=== PATIENT | male | born 1965 | race Caucasian/White ===

== ENCOUNTER 2018-06-24 11:49 | Emergency (ER) | payer SELFPAY ==
--- NOTE | 2018-06-24 14:11 | ER Document Report ---
ED Medical Screen (RME) - General Chief Complaint: Leg Pain Stated Complaint: LEG PAIN Time Seen by Provider: 06/24/18 14:01 Notes: Patient is a 53-year-old male presents to the emergency department for left hip and left knee pain. Patient states left hip and left knee pain have started recently. States he denies any injury to his left side. Patient states he also noted a generalized rash on his left lower extremity. Patient states ever since he had his hernia repair in 2009 he feels as though intermittently he has bilateral leg fatigue. States he has not seen a primary care provider for this. Patient is also concerned that he is diabetic because it runs in his family. Patient is requesting testing for diabetes. GENERAL: Alert, interacts well. No acute distress. EXTREMITIES: Moves all 4 extremities spontaneously. No edema, normal radial and dorsalis pedis pulses bilaterally. No cyanosis. NEUROLOGICAL: Alert and oriented x3. Normal speech. PSYCH: Normal affect, normal mood. Exam is somewhat limited due to patient being in triage, fully dressed and unable to pull up his pants to examine left lower extremity. I have greeted and performed a rapid initial assessment of this patient. A comprehensive ED assessment and evaluation of the patient, analysis of test results and completion of the medical decision making process will be conducted by additional ED providers. TRAVEL OUTSIDE OF THE [place] IN LAST 30 DAYS: No - Related Data Allergies/Adverse Reactions: No Known Allergies Allergy (Unverified 06/24/18 11:53) Physical Exam - Vital signs Vitals: Temp Pulse Resp BP Pulse Ox 98.0 F 87 14 192/107 H 97 06/24/18 12:06/24/18 12:01 06/24/18 12:01 06/24/18 12:01 06/24/18 12:01 Course - Vital Signs Vital signs: Temp Pulse Resp BP Pulse Ox 98.0 F 87 14 192/107 H 97 06/24/18 12:01 06/24/18 12:01 06/24/18 12:01 06/24/18 12:01 06/24/18 12:01
--- NOTE | 2018-06-24 15:00 | RADIOLOGY REPORT (SQ) ---
EXAM DESCRIPTION: HIP LEFT AP/LATERAL COMPLETED DATE/TIME: 06/24/2018 2:32 pm REASON FOR STUDY: pain COMPARISON: None. NUMBER OF VIEWS: Two views. TECHNIQUE: AP pelvis and additional frog-leg view of the left hip. LIMITATIONS: None. FINDINGS: MINERALIZATION: Normal. LEFT HIP: No fracture or dislocation. No worrisome bone lesions. RIGHT HIP: No fracture or dislocation. No worrisome bone lesions. PUBIS AND ISCHIUM: No fracture. PELVIS: No fracture. SACRUM: No fracture or dislocation. No worrisome bone lesions. LOWER LUMBAR SPINE: No fracture or dislocation. No worrisome bone lesions. No significant disc disea se. SOFT TISSUES: No findings. OTHER: No other significant finding. IMPRESSION: NEGATIVE STUDY OF THE LEFT HIP AND PELVIS. NO RADIOGRAPHIC EVIDENCE OF ACUTE INJURY. TECHNICAL DOCUMENTATION: JOB ID: [id number] [employer]- All Rights Reserved Reading location - IP/workstation name: [email or web address]
--- NOTE | 2018-06-24 15:00 | RADIOLOGY REPORT (SQ) ---
EXAM DESCRIPTION: KNEE LEFT 4 VIEW COMPLETED DATE/TIME: 06/24/2018 2:32 pm REASON FOR STUDY: pain COMPARISON: None. NUMBER OF VIEWS: Four views. TECHNIQUE: AP, lateral, and both oblique radiographic images acquired of the left knee. LIMITATIONS: None. FINDINGS: MINERALIZATION: Normal. BONES: No acute fracture or dislocation. No worrisome bone lesions. JOINT: No effusion. SOFT TISSUES: No soft tissue swelling. No radio-opaque foreign body. OTHER: No other significant finding. IMPRESSION: NEGATIVE STUDY OF THE LEFT KNEE. NO RADIOGRAPHIC EVIDENCE OF ACUTE INJURY. TECHNICAL DOCUMENTATION: JOB ID: [id number] [employer]- All Rights Reserved Reading location - IP/workstation name: [email or web address]
[2018-06-24 16:16] LABS: APPEARANCE,URINE CLEAR; BILIRUBIN,URINE NEGATIVE (NEGATIVE); COLOR,URINE STRAW; GLUCOSE, URINE NEGATIVE (NEGATIVE); KETONES,URINE NEGATIVE (NEGATIVE); LEUKOCYTE ESTERASE,URINE NEGATIVE (NEGATIVE); NITRITE,URINE NEGATIVE (NEGATIVE); PROTEIN,URINE NEGATIVE (NEGATIVE); URINE SPECIFIC GRAVITY 1.006; UROBILINOGEN,URINE NEGATIVE mg/dL (<2.0)
[2018-06-24] MEDS ORDERED: LIDOCAINE 5% (700 MG) TRANSDERMAL ADH..PATCH TP ONE (18:06)
--- NOTE | 2018-06-24 18:06 | ER Document Report ---
ED General - General Chief Complaint: Leg Pain Stated Complaint: LEG PAIN Time Seen by Provider: 06/24/18 14:01 Notes: Patient is a 53-year-old male presents to the emergency department for left hip and left knee pain that started a couple of weeks ago. He states he has fatigue with walking and when he walks in the [employer] he can get past the [employer] registers without getting tired and having to stop. Patient states he also noted a generalized rash on his left lower extremity. Patient is also concerned that he is diabetic because it runs in his family. Patient is requesting testing for diabetes. Denies fever, chills, nausea, vomiting, diarrhea, headache, sore throat, ear pain, lightheadedness, dizziness. Denies urinary symptoms. TRAVEL OUTSIDE OF THE [place] IN LAST 30 DAYS: No - Related Data Allergies/Adverse Reactions: No Known Allergies Allergy (Verified 06/24/18 14:11) Past Medical History - Social History Smoking Status: Current Every Day Smoker Family History: DM, Hypertension Patient has suicidal ideation: No Patient has homicidal ideation: No - Past Medical History Cardiac Medical History: Reports: Hx Hypertension - untreated Renal/ Medical History: Denies: Hx Peritoneal Dialysis Past Surgical History: Reports: Hx Orthopedic Surgery - right arm Review of Systems - Review of Systems Constitutional: See HPI EENT: See HPI Cardiovascular: See HPI Respiratory: See HPI Gastrointestinal: See HPI Genitourinary: See HPI Male Genitourinary: No symptoms reported Musculoskeletal: No symptoms reported Skin: No symptoms reported Hematologic/Lymphatic: No symptoms reported Neurological/Psychological: No symptoms reported Physical Exam - Vital signs Vitals: Temp Pulse Resp BP Pulse Ox 98.0 F 87 14 192/107 H 97 06/24/18 12:01 06/24/18 12:01 06/24/18 12:01 06/24/18 12:01 06/24/18 12:01 - Notes Notes: PHYSICAL EXAMINATION: Reviewed vital signs and charting by RN GENERAL: Alert, interacts well. No acute distress. HEAD: Normocephalic, atraumatic. EYES: Pupils equal, round. Extraocular movements intact. ENT: Oral mucosa moist, tongue midline. NECK: Full range of motion. Trachea midline. LUNGS: Clear to auscultation bilaterally, no wheezes, rales, or rhonchi. No respiratory distress. HEART: Regular rate and rhythm. No murmur ABDOMEN: soft, non-tender. Non-distended. Bowel sounds present in all 4 quadrants. no McBurney's point tenderness, no Lim sign. EXTREMITIES: Moves all 4 extremities spontaneously. No edema, No cyanosis. NEUROLOGICAL: Alert. Normal speech. PSYCH: Normal affect, normal mood. SKIN: Warm, dry, normal turgor. Rash on left distal lower extremity, does not appear vesicular but has erythematous base and is slightly raised. Course - Re-evaluation Re-evalutation: 06/24/18 18:03 Overall well-appearing 53-year-old male with many risk factors. Blood pressure was 192/107 in triage, blood glucose 234, patient is a smoker. Patient did not have primary care doctor. Plan is to give him information for the free clinic. We will give him a lidocaine patch to place over the spots where he is having acute pain in his left gluteal region and his left knee. Patient is stable for discharge. - Vital Signs Vital signs: Temp Pulse Resp BP Pulse Ox 98.0 F 87 14 192/107 H 97 06/24/18 12:01 06/24/18 12:01 06/24/18 12:01 06/24/18 12:01 06/24/18 12:01 - Laboratory Laboratory results interpreted by me: 06/24/18 15:22 POC Glucose 231 H Discharge - Discharge Clinical Impression: Left hip pain Left knee pain Qualifiers: Chronicity: unspecified Qualified Code(s): M25.562 - Pain in left knee Condition: Good Disposition: HOME, SELF-CARE Additional Instructions: You were seen in the emergency department this afternoon for left-sided pain high blood sugar. It is very important that you connect with the [facility] or the [facility] to establish primary care. You have multiple risk factors that puts you in grave danger for a heart attack or a dangerous disease. Your blood sugar was greatly elevated and your blood pressure was greatly elevated while here today. You need to quit smoking. It is unclear what the rashes on your leg but it could be related to some of the supplements you are taking. If it gets worse or causes any more pain or discomfort please return to the emergency department. If you pass out, develop severe unremitting chest pain with shortness of breath or sweats, you have intense chest pain that feels ripping and goes to your back please immediately return to the emergency department as these are dangerous conditions. Please only take Motrin 600 mg every 6 hours and Tylenol 1000 mg every 6 hours for pain.
[2018-06-24 18:19] VITALS: BP 205/111
== END 2018-06-24 18:25 | disposition home or self-care (01) ==
LOC: ER 11:49
DX: M25.562 Pain in left knee (principal); M25.552 Pain in left hip; F17.200 Nicotine dependence, unspecified, uncomplicated; I10 Essential (primary) hypertension
CPT/HCPCS: 81001; 82962; 99283

== ENCOUNTER 2018-12-17 01:18 | Emergency (ER) | payer MEDICAID ==
[2018-12-17] MEDS ORDERED: OXYCODONE-ACETAMINOPHEN 5-325 MG TABLET PO ONE (03:07)
--- NOTE | 2018-12-17 03:09 | ER Document Report ---
ED Medical Screen (RME) - General Chief Complaint: Leg Pain Stated Complaint: LEG PAIN Time Seen by Provider: 12/17/18 03:06 Notes: 53-year-old male with chief complaint of worsening pain in both of his legs. States he was diagnosed with neuropathy, started on gabapentin 300 mg daily, has been increased to 600 mg daily, states that he cannot sleep tonight because it is so bad. He states now he is getting cramps in his back and legs as well. Denies fever, injury. He is on metformin for blood sugar, states he has been trying to improve his diet. TRAVEL OUTSIDE OF THE [place] IN LAST 30 DAYS: No - Related Data Allergies/Adverse Reactions: No Known Allergies Allergy (Verified 06/24/18 14:11) Past Medical History - Past Medical History Cardiac Medical History: Reports: Hx Hypertension - untreated Renal/ Medical History: Denies: Hx Peritoneal Dialysis Past Surgical History: Reports: Hx Orthopedic Surgery - right arm Physical Exam - Vital signs Vitals: Temp Pulse Resp BP Pulse Ox 98.0 F 94 20 150/92 H 98 12/17/18 02:19 12/17/18 02:19 12/17/18 02:19 12/17/18 02:19 12/17/18 02:19 - General General appearance: Appears well, Other - Patient walks with a slow stiff gait Course - Re-evaluation Re-evalutation: I have greeted and performed a rapid initial assessment of this patient. A comprehensive ED assessment and evaluation of the patient, analysis of test results and completion of the medical decision making process will be conducted by additional ED providers. - Vital Signs Vital signs: Temp Pulse Resp BP Pulse Ox 98.0 F 94 20 150/92 H 98 12/17/18 02:19 12/17/18 02:19 12/17/18 02:19 12/17/18 02:12/17/18 02:19
[2018-12-17 04:04] LABS: ABSOLUTE BASOPHILS # (AUTO) 0.1 10^3/uL (0.0-0.2); ABSOLUTE EOSINOPHILS # (AUTO) 0.4 10^3/uL (0.0-0.6); ABSOLUTE LYMPHOCYTES (AUTO) 3.7 10^3/uL (0.5-4.7); ABSOLUTE MONOCYTES (AUTO) 0.8 10^3/uL (0.1-1.4); ABSOLUTE NEUT (AUTO) 8.3 10^3/uL (1.7-8.2); BASOPHILS % (AUTO) 0.7 % (0-2); EOSINOPHILS % (AUTO) 3.3 % (0-6); HEMATOCRIT 42.8 % (37.9-51.0); HEMOGLOBIN 14.6 g/dL (13.5-17.0); LYMPHOCYTES % (AUTO) 27.7 % (13-45); MEAN CORPUSCULAR VOLUME 91 fl (80-97); MONOCYTES % (AUTO) 5.8 % (3-13); PLATELET COUNT 193 10^3/uL (150-450); RED BLOOD COUNT 4.69 10^6/uL (4.35-5.55); RED CELL DISTRIBUTION WIDTH 13.7 % (11.5-14.0); SEGMENTED NEUTROPHILS % (AUTO) 62.5 % (42-78); TOTAL CELLS COUNTED % (AUTO) 100 %; WHITE BLOOD COUNT 13.3 10^3/uL (4.0-10.5)
[2018-12-17 04:25] LABS: ANION GAP 10 (5-19); BLOOD UREA NITROGEN 15 mg/dL (7-20); CALCIUM 10.4 mg/dL (8.4-10.2); CARBON DIOXIDE 25 mmol/L (22-30); CHLORIDE 106 mmol/L (98-107); GLUCOSE 103 mg/dL (75-110); POTASSIUM 4.2 mmol/L (3.6-5.0)
[2018-12-17] MEDS ORDERED: CYCLOBENZAPRINE HCL 10 MG TABLET PO ONE (05:32)
--- NOTE | 2018-12-17 05:32 | ER Document Report ---
ED General - General Chief Complaint: Leg Pain Stated Complaint: LEG PAIN Time Seen by Provider: 12/17/18 03:06 Notes: Patient is a 53-year-old male that comes to the Emergency Department with chief complaint of worsening pain in both of his legs. He states he was diagnosed with neuropathy, started on gabapentin 300 mg daily, has been increased to 600 mg daily, states that he cannot sleep tonight because it is so bad. He states now he is getting cramps in his back and legs as well. Denies fever, injury. He is on metformin for blood sugar, states he has been trying to improve his diet. He states that in May he changed his diet, stopped drinking daily alcohol, and he has lost a lot of weight intentionally. He also states that he is struggling with no income, is trying to get on disability, is living in a camper in the back of his friend's yard. TRAVEL OUTSIDE OF THE [place] IN LAST 30 DAYS: No - Related Data Allergies/Adverse Reactions: No Known Allergies Allergy (Verified 06/24/18 14:11) Past Medical History - General Information source: Patient - Social History Smoking Status: Never Smoker Drug Abuse: None Lives with: Alone Family History: DM, Hypertension Patient has suicidal ideation: No Patient has homicidal ideation: No - Past Medical History Cardiac Medical History: Reports: Hx Hypertension - untreated Renal/ Medical History: Denies: Hx Peritoneal Dialysis Past Surgical History: Reports: Hx Orthopedic Surgery - right arm - Immunizations Immunizations up to date: Yes Hx Diphtheria, Pertussis, Tetanus Vaccination: Yes Review of Systems - Review of Systems Constitutional: No symptoms reported EENT: No symptoms reported Cardiovascular: No symptoms reported Respiratory: No symptoms reported Gastrointestinal: No symptoms reported Genitourinary: No symptoms reported Male Genitourinary: No symptoms reported Musculoskeletal: See HPI Skin: No symptoms reported Hematologic/Lymphatic: No symptoms reported Neurological/Psychological: See HPI Physical Exam - Vital signs Vitals: Temp Pulse Resp BP Pulse Ox 98.0 F 94 20 150/92 H 98 12/17/18 02:19 12/17/18 02:19 12/17/18 02:19 12/17/18 02:19 12/17/18 02:19 - Notes Notes: GENERAL: Alert, interacts well. Walks somewhat gingerly and with some pain but is otherwise well-appearing. HEAD: Normocephalic, atraumatic. EYES: Pupils equal, round, and reactive to light. Extraocular movements intact. ENT: Oral mucosa moist, tongue midline. Oropharynx unremarkable. Airway patent. LUNGS: Clear to auscultation bilaterally, no wheezes, rales, or rhonchi. No resp iratory distress. HEART: Regular rate and rhythm. No murmur ABDOMEN: Soft, non-tender. Non-distended. EXTREMITIES: Moves all 4 extremities spontaneously. No edema, normal radial and dorsalis pedis pulses bilaterally. No cyanosis. BACK: no cervical, thoracic, lumbar midline tenderness. No saddle anesthesia, normal distal neurovascular exam. Moves all extremities in full range of motion. NEUROLOGICAL: Alert and oriented x3. Normal speech. Cranial nerves II through XII grossly intact. PSYCH: Normal affect, normal mood. SKIN: Warm, dry, normal turgor. No rashes or lesions noted. Course - Re-evaluation Re-evalutation: There is mild leukocytosis but this is nonspecific his patient's examination. No signs of cellulitis, no fever, no concerns of infection reported or noted. Patient has no lower extremity swelling or edema. He has normal distal neurovascular examination, he does ambulate with a little bit of discomfort but is able to do so. His examination is actually otherwise unremarkable. He is reporting difficulty sleeping with his chronic neuropathy. CBC otherwise unremarkable, chemistry unremarkable, magnesium unremarkable. Discussed different options. Providing with Flexeril to help with sleep/muscle pain. He does have primary care follow-up and they are adjusting his medications. I did discuss with patient, he does have a poor situation at this time, he is very interested in case management assistance, this was placed after discussion. Discussed return precautions. Patient states understanding and agreement. Stable at time of discharge. - Vital Signs Vital signs: Temp Pulse Resp BP Pulse Ox 97.7 F 74 16 124/77 95 12/17/18 05:37 12/17/18 05:37 12/17/18 05:37 12/17/18 05:37 12/17/18 05:37 - Laboratory Result Diagrams: 12/17/18 03:40 12/17/18 03:40 Laboratory results interpreted by me: 12/17/18 12/17/18 03:40 03:40 WBC 13.3 H Absolute Neutrophils 8.3 H Calcium 10.4 H Discharge - Discharge Clinical Impression: Bilateral leg pain Condition: Stable Disposition: HOME, SELF-CARE Additional Instructions: Your evaluation is most consistent with pain secondary to neuropathy. Continue gabapentin, continue follow-up with primary care provider for adjustments and treatment of this. Take the provided Flexeril especially at night to help with your symptoms. Because of your current situation we do have a pillowcase maker consult placed, they will be following up with you. Return if you worsen including swelling of the legs, fevers, pain in your back, or any other concerning or worsening symptoms. Prescriptions: Cyclobenzaprine HCl [Flexeril 5 mg Tablet] 1 - 2 tab PO TID PRN #30 tablet PRN Reason: Forms: Elevated Blood Pressure
[2018-12-17 05:39] VITALS: BP 124/77
== END 2018-12-17 05:42 | disposition home or self-care (01) ==
LOC: ER 01:18
DX: G62.9 Polyneuropathy, unspecified (principal); Z79.899 Other long term (current) drug therapy; R25.2 Cramp and spasm; I10 Essential (primary) hypertension; Z79.84 Long term (current) use of oral hypoglycemic drugs; Z59.8 Other problems related to housing and economic circumstances
CPT/HCPCS: 36415; 83735; 85025; 80048; J3490; 99283

== ENCOUNTER 2018-12-17 15:36 | Emergency (ER) | payer MEDICAID ==
[2018-12-17] MEDS ORDERED: ASPIRIN 81 MG TABLET, CHEWABLE PO ONE (15:58)
[2018-12-17] MEDS ORDERED: ONDANSETRON HCL INJ/PF 4 MG/2 ML SDV IV ONE (16:06)
[2018-12-17] MEDS ORDERED: MORPHINE SULFATE 10 MG/ML INJ IV ONE (16:06)
[2018-12-17 16:44] LABS: ABSOLUTE BASOPHILS # (AUTO) 0.1 10^3/uL (0.0-0.2); ABSOLUTE EOSINOPHILS # (AUTO) 0.3 10^3/uL (0.0-0.6); ABSOLUTE LYMPHOCYTES (AUTO) 2.3 10^3/uL (0.5-4.7); ABSOLUTE MONOCYTES (AUTO) 0.6 10^3/uL (0.1-1.4); ABSOLUTE NEUT (AUTO) 5.8 10^3/uL (1.7-8.2); BASOPHILS % (AUTO) 1.2 % (0-2); HEMATOCRIT 41.4 % (37.9-51.0); HEMOGLOBIN 14.4 g/dL (13.5-17.0); LYMPHOCYTES % (AUTO) 25.7 % (13-45); MEAN CORPUSCULAR HEMOGLOBIN 31.4 pg (27.0-33.4); MEAN CORPUSCULAR HGB CONC 34.7 g/dL (32.0-36.0); MEAN CORPUSCULAR VOLUME 91 fl (80-97); MONOCYTES % (AUTO) 6.8 % (3-13); PLATELET COUNT 179 10^3/uL (150-450); RED BLOOD COUNT 4.58 10^6/uL (4.35-5.55); RED CELL DISTRIBUTION WIDTH 13.4 % (11.5-14.0); SEGMENTED NEUTROPHILS % (AUTO) 63.3 % (42-78); TOTAL CELLS COUNTED % (AUTO) 100 %; WHITE BLOOD COUNT 9.1 10^3/uL (4.0-10.5)
--- NOTE | 2018-12-17 16:47 | ER Document Report ---
ED Extremity Problem, Lower - General Chief Complaint: Leg Pain Stated Complaint: NUMBNESS IN LEGS Time Seen by Provider: 12/17/18 15:46 Information source: Patient TRAVEL OUTSIDE OF THE [place] IN LAST 30 DAYS: No - HPI Notes: Patient complains of bilateral lower extremity pain. He states it is worse in the left lower externally than the right. It is worse with movement better with rest. However he still does get the pain at rest. He states he is a smoker. He states he has never been told that he has problems with circulation before. He states he has been told he has neuropathy and he takes gabapentin. He states he is currently out of his gabapentin. He states he was seen here yesterday and received Flexeril but this is not helping with the pain. No recent falls or trauma. He also states that he has some abnormal sensations such as a "numbness" in the left lower extremity. The pain does radiate up both legs. It is intermittent. It is sharp. It is moderate to severe. He states he also has noticed that his feet have been paler than usual. - Related Data Allergies/Adverse Reactions: No Known Allergies Allergy (Verified 06/24/18 14:11) Past Medical History - General Information source: Patient - Social History Smoking Status: Current Every Day Smoker Chew tobacco use (# tins/day): No Frequency of alcohol use: None Drug Abuse: None Family History: DM, Hypertension Patient has suicidal ideation: No Patient has homicidal ideation: No - Past Medical History Cardiac Medical History: Reports: Hx Hypertension - untreated Endocrine Medical History: Reports: Hx Diabetes Mellitus Type 2 Renal/ Medical History: Denies: Hx Peritoneal Dialysis Past Surgical History: Reports: Hx Orthopedic Surgery - right arm - Immunizations Immunizations up to date: Yes Hx Diphtheria, Pertussis, Tetanus Vaccination: Yes Review of Systems - Review of Systems Constitutional: denies: Chills, Fever Cardiovascular: denies: Chest pain, Dyspnea Respiratory: denies: Cough, Short of breath -: Yes All other systems reviewed and negative Physical Exam - Vital signs Vitals: Temp Pulse Resp BP Pulse Ox 97.7 F 111 H 16 115/75 97 12/17/18 15:39 12/17/18 15:39 12/17/18 15:39 12/17/18 15:39 12/17/18 15:39 Interpretation: Tachycardic - General General appearance: Appears well, Alert - HEENT Head: Normocephalic, Atraumatic Eyes: Normal Pupils: PERRL - Respiratory Respiratory status: No respiratory distress Chest status: Nontender Breath sounds: Normal Chest palpation: Normal - Cardiovascular Rhythm: Regular, Tachycardia Heart sounds: Normal auscultation Murmur: No - Abdominal Inspection: Normal Distension: No distension Bowel sounds: Normal Tenderness: Nontender Organomegaly: No organomegaly - Back Back: Normal, Nontender - Extremities General upper extremity: Normal inspection, Nontender, Normal color, Normal ROM, Normal temperature General lower extremity: Tender - Feet are tender mildly bilaterally to palpation, Normal ROM, Normal weight bearing, Other - Both feet are slightly cool and pale. Capillary refill does appear normal in all toes. Patient's dorsalis pedis pulse is not palpable on either foot. I tried to use a Doppler and was unable to obtain a pulse on either foot.. No: Sosa's sign - Neurological Neuro grossly intact: Yes Cognition: Normal Orientation: AAOx4 [place] Coma Scale Eye Opening: Spontaneous [place] Coma Scale Verbal: Oriented [place] Coma Scale Motor: Obeys Commands [place] Coma Scale Total: 15 Speech: Normal Motor strength normal: LUE, RUE, LLE, RLE Sensory: Normal - Psychological Associated symptoms: Normal affect, Normal mood - Skin Skin Temperature: Warm Skin Moisture: Dry Skin Color: Normal Course - Re-evaluation Re-evalutation: 12/17/18 19:29 Patient reassessed at this time. He is resting comfortably in the bed. He still does have some lower extremity pain. It is not significantly different than previously. His lower joint still have good color and temperature. I have discussed the case with Dr. Benjamin at the tertiary center. He has accepted the patient in transfer. - Vital Signs Vital signs: Temp Pulse Resp BP Pulse Ox 97.7 F 111 H 30 H 100/74 96 12/17/18 15:39 12/17/18 15:39 12/17/18 19:04 12/17/18 17:01 12/17/18 19:04 - Laboratory Result Diagrams: 12/17/18 16:18 12/17/18 17:16 - Diagnostic Test Radiology reviewed: Image reviewed, Reports reviewed Discharge - Discharge Clinical Impression: Claudication in peripheral vascular disease Condition: Stable Disposition: [facility]
[2018-12-17 17:34] VITALS: BP 100/74
[2018-12-17 17:44] LABS: ANION GAP 9 (5-19); BLOOD UREA NITROGEN 14 mg/dL (7-20); CALCIUM 9.9 mg/dL (8.4-10.2); CARBON DIOXIDE 24 mmol/L (22-30); CHLORIDE 107 mmol/L (98-107); GLUCOSE 91 mg/dL (75-110); POTASSIUM 4.3 mmol/L (3.6-5.0)
--- NOTE | 2018-12-18 00:07 | RADIOLOGY REPORT (SQ) ---
EXAM DESCRIPTION: US LOWER EXTREMITY ARTERIES BILATERAL COMPLETED DATE/TME: 12/17/2018 00:00 CLINICAL HISTORY: 53 years Male, BILATERAL LOWER EXTREMITY PAIN / NO PULSES COMPARISON: None. TECHNIQUE: Grayscale, color Doppler, and spectral Doppler imaging of the bilateral lower extremities. FINDINGS: Velocities: (All velocities in centimeters per second) Right lower extremity- STAGECRAFT PROFESSOR: 92.1 PFA: 60.7 Proximal SFA: 43.2 Mid SFA: 43.5 Distal SFA: 37.3 Popliteal: 20 WHOLESALE PARTS SALESPERSON: 21.3 SOCO: 15.5 DPA: 13.0 Left lower extremity- STAGECRAFT PROFESSOR: 35.9 PFA: Not visualized. Proximal SFA: 20.7 Mid SFA: 14.7 Distal SFA: 22.2 Popliteal: 22.2 WHOLESALE PARTS SALESPERSON: 15.1 SOCO: 9.2 DPA: Not visualized. Doppler imaging: Right leg: Large amount of atherosclerotic plaque. Monophasic waveforms in the right common femoral artery. Measured velocities above may be in a collateral vessel adjacent to the femoral artery and minimal if any significant flow is seen in right superficial femoral artery. Reconstitution of monophasic flow in the right popliteal artery and visualized trifurcated vessels. Left leg: Large amount of atherosclerotic plaque. Monophasic waveforms diminished velocity in the left common femoral artery. Parvus tardus waveforms throughout the left superficial femoral artery with low velocities throughout. Monophasic waveforms at the left popliteal arteries as well as the visualized trifurcated vessels. The dorsalis pedis artery is not visualized. IMPRESSION: 1. Monophasic waveforms in the bilateral common femoral artery suggests inflow stenosis of the iliac arteries or aorta. CTA of the abdomen, pelvis, bilateral lower extremities would provide additional characterization. 2. Occlusion versus high-grade stenosis of the right superficial femoral artery. Recorded velocities above may be within a collateral vessel. There is reconstitution of flow in the right popliteal artery. 3. High-grade narrowing with parvus tardus waveforms throughout the left superficial femoral artery. Monophasic waveforms of the left popliteal and trifurcated arteries.
== END 2018-12-17 19:54 | disposition short-term general hospital (02) ==
LOC: ER 15:36
DX: E11.51 Type 2 diabetes mellitus with diabetic peripheral angiopathy without gangrene (principal); E11.40 Type 2 diabetes mellitus with diabetic neuropathy, unspecified; Z79.899 Other long term (current) drug therapy; M79.604 Pain in right leg; M79.605 Pain in left leg; R20.0 Anesthesia of skin; R23.1 Pallor; I10 Essential (primary) hypertension; R00.0 Tachycardia, unspecified; F17.200 Nicotine dependence, unspecified, uncomplicated
CPT/HCPCS: 36415; 93925; J2270; J2405; 96374; 96375; 99285

== ENCOUNTER 2019-01-13 23:45 | Emergency (ER) | payer MEDICAID ==
--- NOTE | 2019-01-14 03:34 | ER Document Report ---
ED General Pain - General Chief Complaint: Pain All Over Stated Complaint: PAIN ALL OVER Time Seen by Provider: 01/14/19 03:34 Mode of Arrival: Ambulatory Information source: Patient Notes: HISTORY OF PRESENT ILLNESS: Patient is a 53-year-old male with a past medical history of peripheral vascular disease status post aortofemoral bypass who presents with persistent abdominal pain for the past several days following vascular surgery at outside facility approximately 2-1/2 weeks ago. Patient reports his pain has been moderately controlled with oxycodone, however he ran out of this and was unable to follow- up with a surgeon today for his postoperative appointment. Patient denies nausea, vomiting, hematemesis, hematochezia, or melena. Patient initially said "my whole body hurts, "but after prompted to be more specific he responded "my stomach's been hurting ever since the surgery." Location: Abdomen Onset: "It has been hurting ever since the surgery" Alleviation: Oxycodone Provocation: Movement Quality: Aching Radiation: None Severity: Moderate at worst, currently mild Timing: Persistent History of abdominal surgery: Yes, recent aortofemoral bypass Associated symptoms: Denies nausea vomiting, no chest pain or shortness of breath, no hematochezia or melena, no hematemesis Last bowel movement: Today and "harder than normal" REVIEW OF SYSTEMS: CONSTITUTIONAL : Denies fever or chills, no sweats. Denies recent illness. EENT: Denies eye, ear, throat, or mouth pain or symptoms. Denies nasal or sinus congestion. CARDIOVASCULAR: Denies chest pain. Denies swelling of the legs. RESPIRATORY: Denies cough, cold, or chest congestion. Denies shortness of breath or difficulty breathing. Denies wheezing. GASTROINTESTINAL: Positive for abdominal pain. Denies nausea, vomiting, or diarrhea. Denies constipation. GENITOURINARY: Denies difficulty urinating, painful urination, burning, frequency, or blood in urine. FEMALE GENITOURINARY: Denies vaginal bleeding, abnormal or irregular periods. MUSCULOSKELETAL: Denies neck or back pain or joint pain or swelling. SKIN: Denies rash or skin lesions. HEMATOLOGIC : Denies easy bruising or bleeding. LYMPHATIC: Denies swollen, enlarged glands. NEUROLOGICAL: Denies altered mental status or loss of consciousness. Denies headache. Denies weakness or paralysis or loss of use of either side. Denies problems with gait or speech. Denies sensory or motor loss. PSYCHIATRIC: Denies anxiety or stress or depression. All other systems reviewed and negative. PHYSICAL EXAMINATION: GENERAL: Well-appearing, well-nourished and in no acute distress. HEAD: Atraumatic, normocephalic. No scalp deformity, depression, or crepitance. EYES: Pupils are 3 mm and equal/round/reactive to light, extraocular movements intact, sclera anicteric, conjunctiva are normal. ENT: Nares patent bilaterally, oropharynx. Moist mucous membranes. No tonsil hypertrophy. NECK: Normal range of motion, supple without lymphadenopathy. LUNGS: Breath sounds present, equal, and clear to auscultation bilaterally. No wheezes, rales, or rhonchi. HEART: Regular rate and rhythm without murmurs, rubs, or gallops. 2+ peripheral pulses. Normal capillary refill. ABDOMEN: Large vertical laparotomy incision with malgorzata. Soft, nontender, nondistended. Normoactive bowel sounds. No guarding, no rebound. No masses appreciated. BACK: Normal contour, no midline tenderness. Rectal exam deferred. GENITAL/PELVIC: Deferred. EXTREMITIES: Normal range of motion, no pitting or edema. No cyanosis. NEUROLOGICAL: No focal neurological deficits. Moves all extremities spontaneously and on command. PSYCH: Normal mood, normal affect. No suicidal thoughts/ideations. No homicidal thoughts/ideations. No hallucinations. SKIN: Warm, dry, normal turgor, no rashes or lesions noted. ASSESSMENT AND PLAN: This patient is a 53-year-old male who presents with continued chronic abdominal pain after his vascular surgery. 1. Will give the patient oral oxycodone. 2. Will discharge the patient home with strict return precautions and follow-up with vascular surgery. All results were explained to and discussed with the patient, and all questions addressed and answered for the patient. The patient voice both understanding and agreeing with the plan. TRAVEL OUTSIDE OF THE [place] IN LAST 30 DAYS: No - HPI Onset: Last week Onset/Duration: Gradual Quality of pain: Achy, Fullness Severity: Moderate Pain Level: 2 Context: Chronic problem Typical of prior episodes of painful crisis: Yes Associated symptoms: None Exacerbated by: Movement, Walking Relieved by: Denies Similar symptoms previously: Yes Recently seen / treated by doctor: Yes - Related Data Allergies/Adverse Reactions: No Known Allergies Allergy (Verified 01/13/19 23:47) Past Medical History - General Information source: Patient - Social History Smoking Status: Current Every Day Smoker Chew tobacco use (# tins/day): No Frequency of alcohol use: None Drug Abuse: None Lives with: Family Family History: DM, Hypertension Patient has suicidal ideation: No Patient has homicidal ideation: No - Past Medical History Cardiac Medical History: Reports: Hx Hypertension - untreated Pulmonary Medical History: Reports: None EENT Medical History: Reports: None Neurological Medical History: Reports: None Endocrine Medical History: Reports: Hx Diabetes Mellitus Type 2 Renal/ Medical History: Reports: None. Denies: Hx Peritoneal Dialysis Malignancy Medical History: Reports None GI Medical History: Reports: None Musculoskeletal Medical History: Reports None Skin Medical History: Reports None Psychiatric Medical History: Reports: None Traumatic Medical History: Reports: None Infectious Medical History: Reports: None Past Surgical History: Reports: Hx Orthopedic Surgery - right arm, Other - History of vascular surgery - Immunizations Immunizations up to date: Yes Hx Diphtheria, Pertussis, Tetanus Vaccination: Yes Review of Systems - Review of Systems Constitutional: No symptoms reported EENT: No symptoms reported Cardiovascular: No symptoms reported Respiratory: No symptoms reported Gastrointestinal: See HPI, Abdominal pain Genitourinary: No symptoms reported Male Genitourinary: No symptoms reported Musculoskeletal: No symptoms reported Skin: No symptoms reported Hematologic/Lymphatic: No symptoms reported Neurological/Psychological: No symptoms reported -: Yes All other systems reviewed and negative Physical Exam - Vital signs Vitals: Temp Pulse Resp BP Pulse Ox 98.1 F 97 20 150/92 H 98 01/14/19 00:30 01/14/19 00:30 01/14/19 00:30 01/14/19 00:30 01/14/19 00:30 Interpretation: Normal Course - Re-evaluation Re-evalutation: 01/14/19 05:37 Patient has had improvement of symptoms. After additional questioning, the patient is adamant he has been hurting this way since his surgery, and even before. He reports his surgeons know about this and "betting giving of pain medicine when I left the hospital." - Vital Signs Vital signs: Temp Pulse Resp BP Pulse Ox 98.0 F 91 16 138/82 H 97 01/14/19 03:20 01/14/19 03:20 01/14/19 03:20 01/14/19 03:20 01/14/19 03:20 Discharge - Discharge Clinical Impression: Abdominal pain Qualifiers: Abdominal location: generalized Qualified Code(s): R10.84 - Generalized abdominal pain Condition: Good Disposition: HOME, SELF-CARE Instructions: Abdominal Pain ([facility]) Additional Instructions: You have been evaluated in the Emergency Department for continued pain after running out of your medications. While here, you were given oral oxycodone and it is now safe to be discharged home. Please follow-up with your vascular surgeon as instructed as soon as possible. Return to the Emergency Department if you experience worsening pain, feeling weak/dizzy, high blood in your stools, or any other concerning symptoms. Prescriptions: Docusate Sodium [Colace 100 mg Capsule] 100 mg PO BID #60 capsule Print Language: Portuguese
[2019-01-14] MEDS ORDERED: OXYCODONE HCL IR 5 MG TABLET PO ONE (04:52)
[2019-01-14 05:53] VITALS: BP 138/86
== END 2019-01-14 05:52 | disposition home or self-care (01) ==
LOC: ER 23:45
DX: R10.84 Generalized abdominal pain (principal); I10 Essential (primary) hypertension; E11.9 Type 2 diabetes mellitus without complications; F17.200 Nicotine dependence, unspecified, uncomplicated; Z98.890 Other specified postprocedural states; Z95.1 Presence of aortocoronary bypass graft
CPT/HCPCS: 99283

== ENCOUNTER 2019-01-29 14:23 | Emergency (ER) | payer MEDICAID ==
--- NOTE | 2019-01-29 15:24 | ER Document Report ---
ED Medical Screen (RME) - General Stated Complaint: FOOT PAIN Time Seen by Provider: 01/29/19 14:43 Mode of Arrival: Medic Information source: Patient Notes: This 53-year-old male with history of diabetes neuropathy presents emergency department with complaints of abdominal pain pain when he has a bowel movement pain when he voids. Reports bilateral feet pain. Reports he recently had surgery on his abdomen reports they took the malgorzata out last week. Reports he has had pain with a bowel movement last bowel movement was this morning was soft. Denies fever vomiting. Reports his whole body hurts and they took him off his pain medications. I have greeted and performed a rapid initial assessment of this patient. A comprehensive ED assessment and evaluation of the patient, analysis of test results and completion of the medical decision making process will be conducted by additional ED providers. Dictation of this chart was performed using voice recognition software; therefore, there may be some unintended grammatical errors. TRAVEL OUTSIDE OF THE [place] IN LAST 30 DAYS: No - Related Data Allergies/Adverse Reactions: No Known Allergies Allergy (Verified 01/13/19 23:47) Past Medical History - Past Medical History Cardiac Medical History: Reports: Hx Hypertension - untreated Endocrine Medical History: Reports: Hx Diabetes Mellitus Type 2 Renal/ Medical History: Denies: Hx Peritoneal Dialysis Past Surgical History: Reports: Hx Orthopedic Surgery - right arm, Other - History of vascular surgery - Immunizations Immunizations up to date: Yes Hx Diphtheria, Pertussis, Tetanus Vaccination: Yes Physical Exam - Vital signs Vitals: Temp Pulse Resp BP Pulse Ox 98.2 F 108 H 16 111/79 98 01/29/19 14:46 01/29/19 14:46 01/29/19 14:46 01/29/19 14:46 01/29/19 14:46 Course - Vital Signs Vital signs: Temp Pulse Resp BP Pulse Ox 98.2 F 108 H 16 111/79 98 01/29/19 14:46 01/29/19 14:46 01/29/19 14:46 01/29/19 14:46 01/29/19 14:46
[2019-01-29 15:52] LABS: ABSOLUTE BASOPHILS # (AUTO) 0.1 10^3/uL (0.0-0.2); ABSOLUTE EOSINOPHILS # (AUTO) 0.5 10^3/uL (0.0-0.6); ABSOLUTE LYMPHOCYTES (AUTO) 2.5 10^3/uL (0.5-4.7); ABSOLUTE MONOCYTES (AUTO) 0.6 10^3/uL (0.1-1.4); ABSOLUTE NEUT (AUTO) 7.6 10^3/uL (1.7-8.2); BASOPHILS % (AUTO) 1.2 % (0-2); EOSINOPHILS % (AUTO) 4.1 % (0-6); HEMATOCRIT 40.5 % (37.9-51.0); HEMOGLOBIN 13.6 g/dL (13.5-17.0); LYMPHOCYTES % (AUTO) 21.9 % (13-45); MEAN CORPUSCULAR HEMOGLOBIN 29.7 pg (27.0-33.4); MEAN CORPUSCULAR HGB CONC 33.6 g/dL (32.0-36.0); MEAN CORPUSCULAR VOLUME 88 fl (80-97); MONOCYTES % (AUTO) 5.6 % (3-13); PLATELET COUNT 236 10^3/uL (150-450); RED BLOOD COUNT 4.58 10^6/uL (4.35-5.55); RED CELL DISTRIBUTION WIDTH 16.4 % (11.5-14.0); SEGMENTED NEUTROPHILS % (AUTO) 67.2 % (42-78); TOTAL CELLS COUNTED % (AUTO) 100 %; WHITE BLOOD COUNT 11.3 10^3/uL (4.0-10.5)
[2019-01-29 16:11] LABS: ALBUMIN 4.9 g/dL (3.5-5.0); ALKALINE PHOSPHATASE 107 U/L (38-126); ANION GAP 12 (5-19); ASPARTATE AMINO TRANSFERASE 24 U/L (17-59); BILIRUBIN,DIRECT 0.2 mg/dL (0.0-0.4); BILIRUBIN,TOTAL 0.4 mg/dL (0.2-1.3); BLOOD UREA NITROGEN 23 mg/dL (7-20); CALCIUM 10.4 mg/dL (8.4-10.2); CARBON DIOXIDE 24 mmol/L (22-30); CHLORIDE 104 mmol/L (98-107); GLUCOSE 117 mg/dL (75-110); POTASSIUM 5.3 mmol/L (3.6-5.0); TOTAL PROTEIN 7.9 g/dL (6.3-8.2)
--- NOTE | 2019-01-29 16:13 | RADIOLOGY REPORT (SQ) ---
EXAM DESCRIPTION: KUB/ABDOMEN (SINGLE VIEW) COMPLETED DATE/TIME: 01/29/2019 3:58 pm REASON FOR STUDY: abd pain, pain with BM COMPARISON: None. NUMBER OF VIEWS: One view. TECHNIQUE: Supine radiographic image of the abdomen acquired. LIMITATIONS: None. FINDINGS: BOWEL GAS PATTERN: Normal bowel gas pattern. No dilated loops. CALCIFICATIONS: No suspicious calcifications. SOFT TISSUES: No gross mass or suggestion of organomegaly. HARDWARE: None in the abdomen. BONES: No acute fracture. No worrisome bone lesions. OTHER: Unusual air collection in the right mid abdomen. This has the configuration of renal pelvis a nd proximal ureter. The patient has has some type of surgery with clips noted in the right lower rachel drant. Air in the right collecting system cannot be excluded although this may very well represent n ormal large bowel. IMPRESSION: Unusual air collection in the right upper quadrant as described. Findings were discusse d with the ordering practitioner. A noncontrast CT of the abdomen and pelvis has been ordered for fu rther evaluation. TECHNICAL DOCUMENTATION: JOB ID: [id number] [employer]- All Rights Reserved Reading location - IP/workstation name: [email or web address]
--- NOTE | 2019-01-29 16:17 | ER Document Report ---
ED General - General Stated Complaint: FOOT PAIN Time Seen by Provider: 01/29/19 14:43 Mode of Arrival: Medic Notes: Patient is a 53-year-old male post recent aortofemoral bypass on December 27 at [facility] who presents to the emergency department with bilateral foot pain. Patient states this has been present for a while. Patient denies swelling, redness or calf pain. Patient reports he does have diabetic neuropathy in his feet. Patient also reports a stabbing sensation when he urinates. Patient reports this is also been since the surgery. Patient reports he did follow-up with his surgeon in [place] 2 days ago and had the malgorzata removed from his abdomen. Patient reports he has not had any of his oxycodone for the past 4 days and is having generalized abdominal pain. Patient reports his last bowel movement was today and soft. Patient denies fever. Patient denies nausea, vomiting or diarrhea. TRAVEL OUTSIDE OF THE [place] IN LAST 30 DAYS: No - Related Data Allergies/Adverse Reactions: No Known Allergies Allergy (Verified 01/13/19 23:47) Past Medical History - General Information source: Patient - Social History Smoking Status: Unknown if Ever Smoked Lives with: Family Family History: DM, Hypertension - Past Medical History Cardiac Medical History: Reports: Hx Hypertension - untreated Pulmonary Medical History: Reports: None EENT Medical History: Reports: None Neurological Medical History: Reports: None Endocrine Medical History: Reports: Hx Diabetes Mellitus Type 2 Renal/ Medical History: Reports: None. Denies: Hx Peritoneal Dialysis Malignancy Medical History: Reports None GI Medical History: Reports: None Musculoskeletal Medical History: Reports None Skin Medical History: Reports None Psychiatric Medical History: Reports: None Traumatic Medical History: Reports: None Infectious Medical History: Reports: None Past Surgical History: Reports: Hx Orthopedic Surgery - right arm, Other - History of vascular surgery - Immunizations Immunizations up to date: Yes Hx Diphtheria, Pertussis, Tetanus Vaccination: Yes Review of Systems - Review of Systems Constitutional: No symptoms reported EENT: No symptoms reported Cardiovascular: No symptoms reported Respiratory: No symptoms reported Gastrointestinal: See HPI Genitourinary: See HPI Male Genitourinary: No symptoms reported Musculoskeletal: No symptoms reported Skin: No symptoms reported Hematologic/Lymphatic: No symptoms reported Neurological/Psychological: No symptoms reported Physical Exam - Vital signs Vitals: Temp Pulse Resp BP Pulse Ox 98.2 F 108 H 16 111/79 98 01/29/19 14:46 01/29/19 14:46 01/29/19 14:46 01/29/19 14:46 01/29/19 14:46 Interpretation: Tachycardic - Notes Notes: GENERAL: Well-appearing, well-nourished and in no acute distress. HEAD: Atraumatic, normocephalic. EYES: Pupils equal round and reactive to light, extraocular movements intact, sclera anicteric, conjunctiva are normal. ENT: Nares patent, oropharynx clear without exudates. Moist mucous membranes. NECK: Normal range of motion, supple without lymphadenopathy or JVD. LUNGS: Breath sounds clear to auscultation bilaterally and equal. No wheezes rales or rhonchi. HEART: Regular rate and rhythm without murmurs, rubs or gallops. ABDOMEN: Soft, nontender, normoactive bowel sounds, healed vertical scar noted to the mid abdomen, patient also has healed bilateral laparoscopic inguinal scars. No guarding, no rebound. No masses appreciated. BACK: No cervical, thoracic, lumbar midline tenderness. No saddle anesthesia, normal distal neurovascular exam. GENITOURINARY: Deferred. EXTREMITIES: Normal range of motion, no pitting or edema. No clubbing or cyanosis. NEUROLOGICAL: Cranial nerves II through XII grossly intact. Normal speech, normal gait. PSYCH: Normal mood, normal affect. SKIN: Warm, Dry, normal turgor, no rashes or lesions noted. Course - Re-evaluation Re-evalutation: 01/29/19 16:08 Dr. Betancourt the radiologist called to report a possible fluid collection in the right upper quadrant and potentially involving the kidney. He does recommend obtaining a CT of the abdomen without oral or IV contrast. The order has been placed into the computer. Patient is resting comfortably on the stretcher. Patient's abdomen is soft and non-tender. Patient does have a vertical healed scar to the abdomen which he reports is from a recent surgery on December 27. Patient reports he had an Aortofemoral bypass. He states he did follow-up with his surgeon in [place] 2 days ago to have the malgorzata removed. Patient reports generalized abdominal pain and bilateral foot pain. Patient denies fever, nausea, vomiting or diarrhea. 01/29/19 17:[address] of the abdomen was unremarkable. I did discuss the results of the blood work with the patient. I did inform him that his potassium level was slightly elevated and to make sure that he is staying hydrated. Patient reports that his biggest complaint is that he ran out of his pain medication. I did i nform him that ultimately his surgeon needs to prescribe him the medications or his primary care physician. Patient reports that his surgeon did cut him off of his pain medication. I did inform him I will give him something while he is here in the emergency department as he reports he is not driving but I will not prescribe any pain medications. Patient verbalizes understanding and agrees with this plan. - Vital Signs Vital signs: Temp Pulse Resp BP Pulse Ox 98.1 F 106 H 16 154/100 H 98 01/29/19 18:02 01/29/19 18:02 01/29/19 18:02 01/29/19 18:02 01/29/19 18:02 - Laboratory Result Diagrams: 01/29/19 15:30 01/29/19 15:30 Laboratory results interpreted by me: 01/29/19 01/29/19 15:30 15:30 WBC 11.3 H RDW 16.4 H Potassium 5.3 H BUN 23 H Glucose 117 H Calcium 10.4 H 01/29/19 17:38 Patient's lab work does not show significant leukocytosis or anemia. Patient's potassium is slightly elevated at 5.3. Patient's urinalysis was arm unremarkable. Laboratory 01/29/19 01/29/19 01/29/19 15:30 15:30 17:18 WBC 11.3 H RBC 4.58 Hgb 13.6 Hct 40.5 MCV 88 MCH 29.7 MCHC 33.6 RDW 16.4 H Plt Count 236 Lymph % (Auto) 21.9 Dauphin % (Auto) 5.6 Eos % (Auto) 4.1 Baso % (Auto) 1.2 Absolute Neuts (auto) 7.6 Absolute Lymphs (auto) 2.5 Absolute Monos (auto) 0.6 Absolute Eos (auto) 0.5 Absolute Basos (auto) 0.1 Seg Neutrophils % 67.2 Sodium 139.6 Potassium 5.3 H Chloride 104 Carbon Dioxide 24 Anion Gap 12 BUN 23 H Creatinine 1.21 Est GFR ( Amer) > 60 Est GFR (MDRD) Non-Af > 60 Glucose 117 H Calcium 10.4 H Total Bilirubin 0.4 Direct Bilirubin 0.2 Neonat Total Bilirubin Not Reportable Neonat Direct Bilirubin Not Reportable Neonat Indirect Bili Not Reportable AST 24 ALT 16 Alkaline Phosphatase 107 Total Protein 7.9 Albumin 4.9 Urine Color STRAW Urine Appearance CLEAR Urine pH 5.0 Ur Specific Blythe 1.010 Urine Protein NEGATIVE Urine Glucose (UA) NEGATIVE Urine Ketones NEGATIVE Urine Blood NEGATIVE Urine Nitrite NEGATIVE Urine Bilirubin NEGATIVE Urine Urobilinogen NEGATIVE Ur Leukocyte Esterase NEGATIVE Urine WBC (Auto) 0 Urine Mucus (Auto) RARE Urine Ascorbic Acid NEGATIVE - Diagnostic Test Radiology reviewed: Reports reviewed Radiology results interpreted by me: 01/29/19 16:43 KUB X-Ray 01/29/19 15:22 IMPRESSION: Unusual air collection in the right upper quadrant as described. Findings were discussed with the ordering practitioner. A noncontrast CT of the abdomen and pelvis has been ordered for further evaluation. Abdomen/Pelvis CT 01/29/19 16:07 IMPRESSION: 1. Postsurgical changes with suture line in the right lower quadrant. Previous aortobifemoral bypass graft placement. No focal inflammatory changes. No evidence of air in the right collecting system which was suggested on KUB. The air collection does lie within colon. 2. No acute findings in the abdomen or pelvis to explain the patient's clinical symptoms. Discharge - Discharge Clinical Impression: Abdominal pain Qualifiers: Abdominal location: generalized Qualified Code(s): R10.84 - Generalized abdominal pain Diabetic neuropathy Qualifiers: Diabetes mellitus type: type 2 Diabetes mellitus complication detail: with other neurological complication Qualified Code(s): E11.49 - Type 2 diabetes mellitus with other diabetic neurological complication Condition: Stable Disposition: HOME, SELF-CARE Additional Instructions: Today you are seen in the emergency department for abdominal pain. We did obta in a CT scan as well as blood work which was unremarkable for any acute abnormality. We have given you a dose of oxycodone prior to discharge. At this time you need to follow-up with your surgeon or primary care physician if you require more pain medications as I am not going to prescribe you pain medications. You can take Tylenol and ibuprofen as needed for your discomfort. Please return to the emergency department if you have any fever, abdominal pain that is worse, abdominal swelling or any change in your condition. Abdominal Pain There are many causes of abdominal pain. Pain can mean a serious problem requiring surgery (such as appendicitis). It can also be an innocent problem that goes away on its own (such as a viral infection). Often, time must pass to determine the cause of pain. The physician does not feel that hospitalization is necessary, at present. Things may change within the next 24 hours. Call the doctor or come back for re-examination if any problems occur, such as: (1) Pain that becomes more severe, steady, or becomes concentrated in one specific area. Also, pain that is more severe with movement or coughing. (2) Vomiting that persists or becomes more frequent. (3) Blood in the vomitus, urine, or bowel movements. Blood in the stool may have a tarry or black appearance. (4) Shaking chills or fever greater than 100 degrees F. (5) The abdomen becomes more distended or swollen. (6) Bowel movements cease. (7) Failure to improve as expected.
--- NOTE | 2019-01-29 16:39 | RADIOLOGY REPORT (SQ) ---
EXAM DESCRIPTION: CT ABD/PELVIS NO ORAL OR IV COMPLETED DATE/TIME: 01/29/2019 4:27 pm REASON FOR STUDY: possible fluid collection on kub abdominal pain, nausea and vomiting left lower qu adrant pain COMPARISON: KUB done earlier the same day. TECHNIQUE: CT scan of the abdomen and pelvis performed without intravenous or oral contrast. Images reviewed with lung, soft tissue, and bone windows. Reconstructed coronal and sagittal MPR images revi ewed. All images stored on PACS. All CT scanners at this facility use dose modulation, iterative reconstruction, and/or weight based d osing when appropriate to reduce radiation dose to as low as reasonably achievable (ALARA). [facility]: Dose Right [facility]: CareDose [facility]: Dose Right [facility]: Teradose 4D [facility]: [employer] RADIATION DOSE: mGy. LIMITATIONS: None. FINDINGS: LOWER CHEST: No significant findings. No nodules or infiltrates. NON-CONTRASTED LIVER, SPLEEN, ADRENALS: Evaluation limited by lack of IV contrast. No identified sign ificant masses. PANCREAS: No masses. No peripancreatic inflammatory changes. GALLBLADDER: No identified stones by CT criteria. No inflammatory changes to suggest cholecystitis. RIGHT KIDNEY AND URETER: No suspicious masses. Assessment limited by lack of IV contrast. No signif icant calcifications. No hydronephrosis or hydroureter. LEFT KIDNEY AND URETER: No suspicious masses. Assessment limited by lack of IV contrast. No signifi cant calcifications. No hydronephrosis or hydroureter. AORTA AND RETROPERITONEUM: Aortobifemoral graft is in placed. Mild inflammatory changes surrounding both the right and left common femoral arteries probably related to recent surgical procedure. BOWEL AND PERITONEAL CAVITY: No obvious masses or inflammatory changes. No free fluid. Postsurgical changes in the right lower quadrant with suture line noted. APPENDIX: Surgically absent. PELVIS, BLADDER, AND ABDOMINAL WALL:No abnormal masses. No free fluid. Bladder normal. BONES: No significant findings. OTHER: Air collection demonstrated on conventional radiographs does lie within colon. IMPRESSION: 1. Postsurgical changes with suture line in the right lower quadrant. Previous aortobi femoral bypass graft placement. No focal inflammatory changes. No evidence of air in the right zoe ecting system which was suggested on KUB. The air collection does lie within colon. 2. No acute findings in the abdomen or pelvis to explain the patient's clinical symptoms. COMMENT: Quality ID # [id number]: Final reports with documentation of one or more dose reduction techniques (e.g., Automated exposure control, adjustment of the mA and/or kV according to patient size, use of iterative reconstruction technique) TECHNICAL DOCUMENTATION: JOB ID: [id number] [employer]- All Rights Reserved Reading location - IP/workstation name: [email or web address]
[2019-01-29 17:31] LABS: APPEARANCE,URINE CLEAR; BILIRUBIN,URINE NEGATIVE (NEGATIVE); COLOR,URINE STRAW; GLUCOSE, URINE NEGATIVE (NEGATIVE); KETONES,URINE NEGATIVE (NEGATIVE); LEUKOCYTE ESTERASE,URINE NEGATIVE (NEGATIVE); NITRITE,URINE NEGATIVE (NEGATIVE); PROTEIN,URINE NEGATIVE (NEGATIVE); UROBILINOGEN,URINE NEGATIVE mg/dL (<2.0)
[2019-01-29] MEDS ORDERED: OXYCODONE HCL IR 5 MG TABLET PO ONE (17:52)
[2019-01-29 18:06] VITALS: BP 154/100
== END 2019-01-29 18:05 | disposition home or self-care (01) ==
LOC: ER 14:23
DX: E11.40 Type 2 diabetes mellitus with diabetic neuropathy, unspecified (principal); R10.84 Generalized abdominal pain; M79.671 Pain in right foot; M79.672 Pain in left foot; I10 Essential (primary) hypertension; Z98.890 Other specified postprocedural states
CPT/HCPCS: 99284; 36415; 85025; 80053; 81001; 74018; 74176; J3490